=== PATIENT | male | born 1975 | race Caucasian/White ===

== ENCOUNTER 2018-03-27 15:41 | Emergency (ER) | payer SELFPAY ==
[~2018-03-27] VITALS: Ht 170.2 cm; Wt 87.8 kg
[2018-03-27 15:59] VITALS: BP 148/99; PULSE 80; RESP 18; Ht 170.2 cm; Wt 87.8 kg
== END 2018-03-27 17:35 | disposition left against medical advice (07) ==
LOC: E/R 15:41
DX: Z53.21 Procedure and treatment not carried out due to patient leaving prior to being seen by health care provider (principal)